=== PATIENT | female | born 1970 | race Caucasian/White ===

== ENCOUNTER 2018-10-22 22:56 | Emergency (ER) | payer BC ==
[2018-10-22] MEDS ORDERED: Famotidine/PF 20 mg/2ml Vial ONE (23:15)
[2018-10-22] MEDS ORDERED: methylPREDNISolone Sod Succ/PF 125 MG/2 ML VIAL ONE (23:15)
[2018-10-22] MEDS ORDERED: Water For Inject, Bacteriostat 30 ML ONE (23:16)
== END 2018-10-23 00:41 | disposition home or self-care (01) ==
LOC: SCSER 22:56
DX: L50.0 Allergic urticaria (principal); G43.909 Migraine, unspecified, not intractable, without status migrainosus
CPT/HCPCS: 96361; 96374; 96375; J2930; S0028

== ENCOUNTER 2018-12-09 08:33 | Outpatient (CLI) | payer BC ==
--- NOTE | 2018-12-09 15:18 | CT ---
CT ABDOMEN AND PELVIS WITH AND WITHOUT IV CONTRAST 12/09/18 HISTORY: Microscopic hematuria. History of prior hysterectomy. COMPARISON: None. FINDINGS: A few subcentimeter too small to characterize hypodense lesions are seen in the left kidney. No renal or ureteral calculi are seen bilaterally, and there is no evidence of hydronephrosis. No enhancing r enal mass is seen. Post cholecystectomy changes are seen. The lung bases, liver, spleen, pancreas, bilateral adrenal glands, and abdominal aorta demonstrate a normal CT appearance. The urinary bladder is incompletely distended. No definite filling defect is se en within the opacified renal collecting systems, left ureter, or segmentally opacified right ureter on delayed imaging. No free fluid, fluid collection or lymphadenopathy is seen in the abdomen or pelvis. There is evidence of prior hysterectomy. A few colonic diverticula are scattered within the colon. The appendix is visualized and normal in caliber. No suspicious lytic or sclerotic osseous lesions ar e seen. IMPRESSION: 1. No acute findings are seen in the abdomen or pelvis. 2. No renal or ureteral calculi are seen bilaterally and there is no enhancing renal mass. 3. Post cholecystectomy changes. 4. Hysterectomy. POS: [facility]
== END 2018-12-09 08:34 | disposition home or self-care (01) ==
LOC: SCSCT 08:33
PROVIDERS: ATTEND Urology
DX: R31.29 Other microscopic hematuria (principal); Z90.710 Acquired absence of both cervix and uterus; Z90.49 Acquired absence of other specified parts of digestive tract
CPT/HCPCS: 74178

== ENCOUNTER 2021-09-02 16:30 | Outpatient (CLI) | payer BC, OTHER | END 2021-09-02 16:31 | disposition home or self-care (01) | LOC: SLEEPLAB 16:30 | PROVIDERS: ATTEND Family Medicine | DX: G47.33 Obstructive sleep apnea (adult) (pediatric) (principal); R53.83 Other fatigue; R51.9 Headache, unspecified; R35.1 Nocturia | CPT/HCPCS: 95800 ==